=== PATIENT | male | born 1995 | race Caucasian/White ===

== ENCOUNTER 2021-12-29 08:18 | Emergency (ER) | payer OTHER ==
[~2021-12-29] VITALS: Ht 177.8 cm; Wt 60.3 kg
[2021-12-29 08:19] VITALS: BP 154/89
[2021-12-29] MEDS ORDERED: EX-L15TA PO (08:24)
== END 2021-12-29 09:52 | disposition home or self-care (01) ==
LOC: M ED 08:18
DX: K59.00 Constipation, unspecified (principal); K60.2 Anal fissure, unspecified